=== PATIENT | female | born 1960 | race Caucasian/White ===

== ENCOUNTER 2022-10-10 14:24 | Emergency (ER) | payer MEDICAID ==
[~2022-10-10] VITALS: Ht 162.6 cm; Wt 77.1 kg
[2022-10-10] MEDS ORDERED: LOSA1TAB42 PO (14:33)
[2022-10-10] MEDS ORDERED: APIX5TAB PO (14:33)
[2022-10-10] MEDS ORDERED: RANO500T3 PO (14:33)
[2022-10-10] MEDS ORDERED: ATOR20TA PO (14:34)
[2022-10-10] MEDS ORDERED: MAGN400T26 PO (14:34)
[2022-10-10 15:42] LABS: CARBON DIOXIDE 26 mmol/L (21-32); CHLORIDE 103 mmol/L (98-107); CREATININE 0.7 mg/dL (0.6-1.3); GLUCOSE 87 mg/dL (74-106); POTASSIUM 3.9 mmol/L (3.5-5.1); UREA NITROGEN, BLOOD 28 mg/dL (7-18)
--- NOTE | 2022-10-10 16:30 | NUR ---
Patient awake in bed. No acute distress at the moment. Daughter at bedside. Will continue to monitor.
[2022-10-10 17:10] LABS: MEAN CORPUSCULAR HEMOGLOBIN 27.8 uug (24.7-32.8); MEAN CORPUSCULAR VOLUME 81.5 fL (75.5-95.3); PLATELET COUNT (AUTO) 155 K/uL (179-408)
--- NOTE | 2022-10-10 17:38 | NUR ---
Patient discharged to home in stable condition. Written and verbal after care instructions given. Patient verbalizes understanding of instructions. Stressed follow up with home theater expert and primary care physician. Stressed follow up or return to ER for worsening s/s.
[2022-10-10 17:39] VITALS: BP 129/71
== END 2022-10-10 17:40 | disposition home or self-care (01) ==
LOC: ER 14:27
DX: R07.9 Chest pain, unspecified (principal); R00.1 Bradycardia, unspecified; I25.10 Atherosclerotic heart disease of native coronary artery without angina pectoris; Z79.01 Long term (current) use of anticoagulants; Z79.899 Other long term (current) drug therapy
CPT/HCPCS: 36415; 71045; 84484; 85025; 93005; A4663

== ENCOUNTER 2025-03-05 16:46 | Inpatient (IN) | payer MEDICARE, OTHER ==
[~2025-03-05] VITALS: Ht 157.5 cm; Wt 77.1 kg
[~2025-03-05 16:46] MED LIST: APIX5TAB PO; ATOR20TA PO; LOSA1TAB42 PO; MAGN400T26 PO; RANO500T3 PO
[2025-03-05] MEDS ORDERED: METO25TA6 PO (17:15)
[2025-03-05] MEDS ORDERED: BUSP7.5T7 PO (17:15)
[2025-03-05 18:08] LABS: PLATELET COUNT (AUTO) 137 K/uL (179-408); RED BLOOD CELL COUNT(AUTO) 4.30 MIL/uL (3.63-4.92); RED CELL DISTRIBUTION WIDTH 13.6 % (12.3-17.7); WHITE BLOOD COUNT (AUTO) 4.0 K/uL (3.8-11.8)
[2025-03-05 18:18] LABS: CREATININE 0.9 mg/dL (0.6-1.3); SODIUM SERUM 139.0 mmol/L (136-145); UREA NITROGEN, BLOOD 25.0 mg/dL (7-18)
[2025-03-05] MEDS ORDERED: ENALAPRILAT DIHYDRATE 1.25 MG/1 ML VIAL IV ONE (18:57)
[2025-03-05] MEDS: ATORVASTATIN 20 MG TABLET PO SCH (21:23)
[2025-03-05 21:27] VITALS: BP 126/62; TEMP 98.6; O2SAT 98
[2025-03-05] MEDS ORDERED: ONDANSETRON 4 MG/2 ML VIAL IV PRN (21:30)
[2025-03-05] MEDS ORDERED: TEMAZEPAM 15 MG CAPSULE PO PRN (21:30)
[2025-03-05] MEDS ORDERED: MAGNESIUM HYDROXIDE 30 ML LIQUID UDC PO PRN (21:30)
[2025-03-05] MEDS ORDERED: ACETAMINOPHEN 325 MG TABLET PO PRN (21:30)
[2025-03-05] MEDS ORDERED: FLUCONAZOLE 200 MG/100 ML PIGGYBACK ONE (21:39)
[2025-03-05] MEDS: ASPIRIN EC 325 MG TABLET.DR PO ONE (22:14)
[2025-03-05] MEDS: FLUCONAZOLE 200 MG/NS 100ML IV 100 MG in PREMIXED 1 EACH IV SCH (22:14)
[2025-03-05] MEDS: ENOXAPARIN SODIUM 40 MG/0.4 ML DISP.SYRIN SQ SCH (22:16)
[2025-03-05] MEDS: TEMAZEPAM 7.5 MG CAPSULE PO PRN (22:42)
[2025-03-06] VITALS (7 sets, daily range): BP systolic 120–149; BP diastolic 48–66; TEMP 97.2–98.5; O2SAT 97–100
[2025-03-06 06:24] LABS: PLATELET COUNT (AUTO) 119 K/uL (179-408); RED BLOOD CELL COUNT(AUTO) 4.18 MIL/uL (3.63-4.92); RED CELL DISTRIBUTION WIDTH 13.6 % (12.3-17.7); WHITE BLOOD COUNT (AUTO) 3.3 K/uL (3.8-11.8)
[2025-03-06] MEDS: PANTOPRAZOLE SODIUM 40 MG TABLET.DR PO SCH (06:32)
[2025-03-06 06:41] LABS: IRON, SERUM 89.0 ug/dL (50-175)
[2025-03-06 07:03] LABS: ASPARTATE AMINOTRANSFERASE 14.0 U/L (15-37); CREATININE 0.8 mg/dL (0.6-1.3); SODIUM SERUM 141.0 mmol/L (136-145); TOTAL PROTEIN, SERUM 6.0 g/dL (6.4-8.2); UREA NITROGEN, BLOOD 21.0 mg/dL (7-18)
[2025-03-06] MEDS: ASPIRIN EC 81 MG TABLET.DR PO SCH (08:27)
[2025-03-06] MEDS: RANOLAZINE 500 MG TAB.ER.12H PO SCH (08:27)
[2025-03-06] MEDS: HYDROCHLOROTHIAZIDE 12.5 MG CAPSULE PO SCH (08:29)
[2025-03-06] MEDS: APIXABAN 5 MG TABLET PO SCH (08:29)
[2025-03-06] MEDS: LOSARTAN POTASSIUM 50 MG TABLET PO SCH (08:32)
[2025-03-06] MEDS ORDERED: Medication Not On Formulary EA (Losartan/Hydrochlorothiazide (Losartan-Hctz 100-12.5 Mg PO SCH (09:00)
[2025-03-06] MEDS ORDERED: LOSA-22 PO (10:00)
[2025-03-06] MEDS ORDERED: OLOP5DRO15 EACHEYE (10:00)
[2025-03-06] MEDS ORDERED: MECL-159 PO (10:00)
[2025-03-06] MEDS ORDERED: METO-356 PO (10:00)
[2025-03-06] MEDS: DOCUSATE SODIUM 100 MG CAPSULE PO SCH (20:45)
[2025-03-06] MEDS: ATORVASTATIN 20 MG TABLET PO SCH (20:45)
[2025-03-06] MEDS ORDERED: FLUCONAZOLE 200 MG/100 ML PIGGYBACK ONE (21:01)
[2025-03-06] MEDS: FLUCONAZOLE 200 MG/NS 100ML IV 200 MG in PREMIXED 1 EACH IV SCH (21:08)
[2025-03-07 05:56] VITALS: BP 111/59; TEMP 97.4; O2SAT 98
[2025-03-07] MEDS ORDERED: FLUC150T PO (15:12)
[2025-03-07] MEDS ORDERED: PANT40TA49 PO (15:12)
[2025-03-07 15:59] VITALS: BP 153/66; TEMP 98.2; O2SAT 96
== END 2025-03-07 16:15 | disposition home or self-care (01) | DRG 552 ==
LOC: ER 16:50 → TELE3 20:46 → MEDSURG3 03-06 08:12
PROVIDERS: ADMIT Internal Medicine; ATTEND Internal Medicine
DX: M53.3 Sacrococcygeal disorders, not elsewhere classified (principal); B48.8 Other specified mycoses; R20.2 Paresthesia of skin; J32.0 Chronic maxillary sinusitis; E66.9 Obesity, unspecified; R79.89 Other specified abnormal findings of blood chemistry; I25.10 Atherosclerotic heart disease of native coronary artery without angina pectoris; E78.5 Hyperlipidemia, unspecified; E87.6 Hypokalemia; D69.6 Thrombocytopenia, unspecified; I10 Essential (primary) hypertension; Z68.31 Body mass index [BMI] 31.0-31.9, adult; Z79.01 Long term (current) use of anticoagulants; Z79.899 Other long term (current) drug therapy; Z82.49 Family history of ischemic heart disease and other diseases of the circulatory system
CPT/HCPCS: 36415; 70450; 70551; 71045; 83550; 83735; 84100; 84443; 84484; 85025; 85730; A4606; A4663; G0378; J1450; J1650; J3490